=== PATIENT | female | born 2005 | race Caucasian/White ===

== ENCOUNTER 2025-07-04 08:51 | Emergency (ER) | payer BC ==
[~2025-07-04] VITALS: Ht 170.2 cm; Wt 103.5 kg
[2025-07-04 10:08] LABS: BASO # 0.0 10^3/uL (0.0-0.2); BASO % 0.8 % (0.0-1.0); EOS # 0.1 10^3/uL (0.0-0.5); EOS % 1.9 % (0.0-3.0); LYMPH # 1.5 10^3/uL (1.5-5.0); LYMPH % 29.7 % (24.0-44.0); MONO # 0.3 10^3/uL (0.0-0.8); MONO % 6.0 % (2.0-8.0); NEUTROPHILS # 3.2 10^3/uL (1.5-8.5); NEUTROPHILS % 61.6 % (36.0-66.0); PLATELET COUNT, AUTOMATED 263 10^3/uL (150-450)
[2025-07-04 10:39] LABS: ALT/SGPT 31 U/L (7.0-40); AST/SGOT 23 U/L (<34); CALCIUM LEVEL 9.3 MG/DL (8.5-10.1); CARBON DIOXIDE LEVEL 28 MMOL/L (20-31); CHLORIDE LEVEL 103 MMOL/L (98-107); CREATININE FOR GFR 0.71 MG/DL (0.55-1.30); GLOMERULAR FILTRATION RATE > 90.0 (>60); POTASSIUM SERUM 3.9 MMOL/L (3.5-5.1); SODIUM LEVEL 140 MMOL/L (136-145)
[2025-07-04 10:41] LABS: HCG, SERUM QUALITATIVE NEGATIVE (NEGATIVE)
[2025-07-04 12:18] LABS: CK-MB VALUE MASS < 1.0 NG/ML (<3.6)
[2025-07-04 12:19] LABS: CPK CREATINE PHOSPHOKINASE 44 U/L (34-145)
[2025-07-04] MEDS ORDERED: HOME MED LIST COMPLETE! XX SCH (13:45)
== END 2025-07-04 14:07 | disposition home or self-care (01) ==
LOC: MERGE 08:51 → M ED 08:51
DX: R55 Syncope and collapse (principal); S00.81XA Abrasion of other part of head, initial encounter; S06.0X0A Concussion without loss of consciousness, initial encounter; F12.10 Cannabis abuse, uncomplicated; F10.10 Alcohol abuse, uncomplicated; Y92.009 Unspecified place in unspecified non-institutional (private) residence as the place of occurrence of the external cause; Y93.89 Activity, other specified; Y99.9 Unspecified external cause status

== ENCOUNTER 2025-07-23 14:57 | Emergency (ER) | payer BC ==
[~2025-07-23] VITALS: Ht 170.2 cm; Wt 100.0 kg
[2025-07-23 15:41] LABS: BASO # 0.1 10^3/uL (0.0-0.2); BASO % 0.6 % (0.0-1.0); EOS # 0.1 10^3/uL (0.0-0.5); EOS % 0.7 % (0.0-3.0); LYMPH # 2.3 10^3/uL (1.5-5.0); LYMPH % 28.2 % (24.0-44.0); MONO # 0.5 10^3/uL (0.0-0.8); MONO % 5.9 % (2.0-8.0); NEUTROPHILS # 5.3 10^3/uL (1.5-8.5); NEUTROPHILS % 64.4 % (36.0-66.0); PLATELET COUNT, AUTOMATED 360 10^3/uL (150-450)
[2025-07-23 16:08] LABS: CK-MB VALUE MASS < 1.0 NG/ML (<3.6)
[2025-07-23 16:10] LABS: CALCIUM LEVEL 10.1 MG/DL (8.5-10.1); CARBON DIOXIDE LEVEL 20 MMOL/L (20-31); CHLORIDE LEVEL 108 MMOL/L (98-107); CREATININE FOR GFR 0.67 MG/DL (0.55-1.30); GLOMERULAR FILTRATION RATE > 90.0 (>60); POTASSIUM SERUM 3.7 MMOL/L (3.5-5.1); SODIUM LEVEL 141 MMOL/L (136-145)
[2025-07-23 16:11] LABS: HCG, SERUM QUALITATIVE NEGATIVE (NEGATIVE)
[2025-07-23 16:13] LABS: CPK CREATINE PHOSPHOKINASE 102 U/L (34-145)
[2025-07-23 17:33] LABS: MAGNESIUM LEVEL 1.8 MG/DL (1.8-2.4)
[2025-07-23 17:37] LABS: FREE T4 1.79 NG/DL (0.83-1.43)
[2025-07-23 18:00] VITALS: BP 107/69; TEMP 97.6; O2SAT 97
[2025-07-23] MEDS ORDERED: HYDR50CA2 PO (18:06)
== END 2025-07-23 18:15 | disposition home or self-care (01) ==
LOC: M ED 14:57
DX: F41.0 Panic disorder [episodic paroxysmal anxiety] (principal); R00.0 Tachycardia, unspecified; F43.10 Post-traumatic stress disorder, unspecified; F17.200 Nicotine dependence, unspecified, uncomplicated; F12.10 Cannabis abuse, uncomplicated; Z79.899 Other long term (current) drug therapy
CPT/HCPCS: 71045; 80048; 82550; 82553; 83735; 84439; 84443; 84484; 84703; 85025; 93005; 93041; 94760; 96374; 99285; J2060